=== PATIENT | female | born 1995 | race American Indian/Alaskan Native ===

== ENCOUNTER → 2017-04-24 | Outpatient (REF) | payer OTHER ==
[~2017-04-24] MED LIST: KET10 PO; METH-543 PO; OXYC-865 PO
[2017-04-24 10:55] LABS: PLATELET COUNT, AUTOMATED 337 K/uL (150-450)
== END ==
PROVIDERS: ATTEND Nurse Practitioner Family
DX: R10.9 Unspecified abdominal pain (principal)
CPT/HCPCS: 82040; 82150; 82247; 82310; 82374; 82435; 82565; 82947; 83690; 84075; 84132; 84155; 84295; 84450; 84460; 84520; 85025

== ENCOUNTER → 2017-06-21 | Outpatient (REF) | payer OTHER ==
[2017-06-21 16:18] LABS: PLATELET COUNT, AUTOMATED 305 K/uL (150-450)
== END ==
PROVIDERS: ATTEND Family Medicine
DX: R10.9 Unspecified abdominal pain (principal)
CPT/HCPCS: 82040; 82247; 82310; 82374; 82435; 82565; 82947; 84075; 84132; 84155; 84295; 84450; 84460; 84520; 85025

== ENCOUNTER → 2018-06-17 | Outpatient (CLI) | payer OTHER ==
--- NOTE | 2018-06-17 15:57 | RADIOLOGY IMAGING REPORT ---
FACILITY: [facility] PATIENT NAME: Joana Spencer : 1995 MR: [id number] V: [id number] EXAM DATE: [id number] ORDERING PHYSICIAN: TERRY GRAY TECHNOLOGIST[place] [facility] [place] : 1995 Visit/Account:[id number] Date of Sevice: 06/17/2018 Exam type: US SOFT TISSUE NON-SPECIFIC History: Lipoma upper right abdomen Comparison: None. Findings: In the area of interest along the right anterior abdominal wall above the umbilicus there is a 3.6 x 0.9 x 5.8 cm space-occupying process slightly more echogenic than the adjacent musculature. This is approximately 5 mm deep to the skin. The appearance is nonspecific with differential diagnosis inclu ding lipoma or other solid mass IMPRESSION: 1. Along the right anterior abdominal wall above the umbilicus there is a 3.6 x 0.9 x 5.8 cm space-o ccupying process slightly more echogenic than the adjacent musculature. Differential diagnosis would include lipoma or other solid masses. Results were called to TERRY GRAY at 06/17/2018 3:51 PM. Report Dictated By: Rosemary Villalba MD at 06/17/2018 3:46 PM Report E-Signed By: Rosemary Villalba MD at 06/17/2018 3:51 PM WSN:[id number]
== END ==
LOC: US 15:11
PROVIDERS: ATTEND Nurse Practitioner Family
DX: D17.5 Benign lipomatous neoplasm of intra-abdominal organs (principal)
CPT/HCPCS: 76999